=== PATIENT | female | born 1975 | race Caucasian/White ===

== ENCOUNTER 2022-02-12 12:35 | Emergency (ER) | payer MEDICAID ==
[~2022-02-12] VITALS: Ht 167.6 cm; Wt 109.0 kg
[2022-02-12 13:18] LABS: BASOPHILS # (AUTO) 0.1 X10'3 (0-0.2); BASOPHILS % (AUTO) 0.9 % (0-1); EOSINOPHILS # (AUTO) 0.1 X10'3 (0-0.9); EOSINOPHILS % (AUTO) 1.3 % (0-6); HEMATOCRIT 43.8 % (35.0-45.0); HEMOGLOBIN 14.7 g/dl (12.0-16.0); LYMPHOCYTES # (AUTO) 1.9 X10'3 (1.1-4.8); LYMPHOCYTES % (AUTO) 26.3 % (21-51); MEAN CORPUSCULAR HGB CONC 33.6 g/dL (33.0-36.5); MEAN CORPUSCULAR VOLUME 92.2 FL (78-98); MEAN PLATELET VOLUME 9.6 FL (7.4-10.4); MONOCYTES # (AUTO) 0.4 X10'3 (0-0.9); MONOCYTES % (AUTO) 5.3 % (2-12); NEUTROPHILS # (AUTO) 4.9 X10'3 (1.8-7.7); NEUTROPHILS % (AUTO) 66.2 % (42-75); PLATELET COUNT 182 X10'3 (140-440); RED BLOOD COUNT 4.75 X10'6 (4.20-5.60); RED CELL DISTRIBUTION WIDTH 12.7 % (11.5-14.5); WHITE BLOOD COUNT 7.4 X10'3 (4.5-11.0)
[2022-02-12 13:20] LABS: APTT 25 SECONDS (22-32)
[2022-02-12 13:23] LABS: ALANINE AMINOTRANSFERASE 21 U/L (12-78); ALBUMIN 4.2 G/DL (3.4-5.0); ALBUMIN/GLOBULIN RATIO 1.1 (1.1-1.5); ALKALINE PHOSPHATASE 79 IU/L (46-116); ANION GAP 9 (8-16); ASPARTATE AMINO TRANSFERASE 14 U/L (10-37); BILIRUBIN,TOTAL 0.4 MG/DL (0.1-1.0); BLOOD UREA NITROGEN 13 MG/DL (7-18); BUN/CREATININE RATIO 14.6 (6.6-38.0); CALCIUM 9.7 MG/DL (8.5-10.1); CHLORIDE 104 MMOL/L (99-107); CREATININE 0.89 MG/DL (0.40-0.90); GLUCOSE 104 MG/DL (70-104); POTASSIUM 3.7 MMOL/L (3.5-5.1); SODIUM 140 MMOL/L (135-145); TOTAL CARBON DIOXIDE 26.9 MMOL/L (24-32); TOTAL PROTEIN 7.9 G/DL (6.4-8.2); eGFR 68 ML/MIN
[2022-02-12] MEDS ORDERED: valacyclovir 500mg tablet PO SCH (13:55)
[2022-02-12] MEDS ORDERED: valacyclovir 500mg tablet PO ONE (13:55)
[2022-02-12] MEDS ORDERED: predniSONE 20 mg tablet PO ONE (13:55)
[2022-02-12] MEDS ORDERED: VALA100031 PO (14:12)
[2022-02-12] MEDS ORDERED: PRED20TA PO (14:12)
[2022-02-12 16:55] VITALS: BP 123/100
== END 2022-02-12 16:56 | disposition home or self-care (01) ==
LOC: ER 12:37
DX: G51.0 Bell's palsy (principal)
CPT/HCPCS: 36415; 70450; 71045; 80053; 85025; 85610; 85730; 93005; 99285; J7512

== ENCOUNTER 2022-11-27 14:52 | Emergency (ER) | payer MEDICAID ==
[~2022-11-27] VITALS: Ht 167.6 cm; Wt 111.0 kg
[~2022-11-27 14:52] MED LIST: VALA100031 PO
[2022-11-27 14:58] VITALS: BP 141/93; PULSE 85; TEMP 98.7; O2SAT 99
[2022-11-27] MEDS ORDERED: ketorolac trometh inj. 60 MG/2 ML VIAL IM ONE (22:40)
[2022-11-27] MEDS ORDERED: traMADol 50MG tablet PO ONE (22:40)
[2022-11-27] MEDS ORDERED: cyclobenzaprine 10mg tablet PO ONE (22:40)
[2022-11-27] MEDS ORDERED: triamcinolone acetonide 40mg/ml inj IM ONE (23:30)
[2022-11-27] MEDS ORDERED: TRAM50TA2 PO ×2 (23:32)
[2022-11-27] MEDS ORDERED: NAPR-56 PO ×2 (23:32)
[2022-11-27 23:48] VITALS: RESP 18
[2022-11-28] MEDS ORDERED: NAPR-56 PO ×3 (00:17→12:15)
[2022-11-28] MEDS ORDERED: TRAM50TA2 PO ×3 (00:17→12:14)
== END 2022-11-28 00:23 | disposition home or self-care (01) ==
LOC: ER 14:52
DX: M54.50 Low back pain, unspecified (principal); Z79.2 Long term (current) use of antibiotics; Z79.899 Other long term (current) drug therapy
CPT/HCPCS: 72131; 96372; 99285; J1885; J3301